=== PATIENT | male | born 1980 | race Caucasian/White ===

== ENCOUNTER → 2016-10-31 | Outpatient (CLI) | payer OTHER ==
[2016-10-31 09:38] LABS: HEMOGLOBIN 12.1 gm/dl (14.0-17.5); RED BLOOD COUNT 4.35 M/UL (4.20-5.50)
[2016-10-31 09:57] LABS: BUN/CREATININE RATIO 4 (0-10)
== END ==
LOC: OPSV 08:44
PROVIDERS: Internal Medicine Gastroenterology
DX: K50.90 Crohn's disease, unspecified, without complications (principal)
CPT/HCPCS: 36592; 80053; 85025; 86140; 96375; 96413; 96415; J1200; J1720; J1745; Q0163

== ENCOUNTER → 2020-08-29 | Outpatient (CLI) | payer OTHER ==
[~2020-08-29] VITALS: Ht 182.9 cm; Wt 97.5 kg
[2020-08-29 10:30] LABS: RED BLOOD COUNT 5.05 M/UL (4.20-5.50); WHITE BLOOD COUNT 5.9 K/UL (4.5-11.0)
[2020-08-29 11:15] LABS: BUN/CREATININE RATIO 12 (0-10)
== END ==
LOC: OPSV 09:55
PROVIDERS: Internal Medicine Gastroenterology
DX: K50.80 Crohn's disease of both small and large intestine without complications (principal); R10.13 Epigastric pain; G89.29 Other chronic pain; R19.8 Other specified symptoms and signs involving the digestive system and abdomen; E87.6 Hypokalemia; M25.50 Pain in unspecified joint; K56.699 Other intestinal obstruction unspecified as to partial versus complete obstruction; E55.9 Vitamin D deficiency, unspecified; R50.9 Fever, unspecified; N18.9 Chronic kidney disease, unspecified
CPT/HCPCS: 36415; 80053; 85025; 86140; 96365; J3380; J7050

== ENCOUNTER → 2020-09-26 | Outpatient (CLI) | payer OTHER ==
[2020-09-26 09:54] LABS: HEMOGLOBIN 15.2 gm/dl (14.0-17.5); RED BLOOD COUNT 5.16 M/UL (4.20-5.50); WHITE BLOOD COUNT 6.5 K/UL (4.5-11.0)
[2020-09-26 10:11] LABS: BUN/CREATININE RATIO 9 (0-10)
== END ==
LOC: OPSV 08:54
PROVIDERS: Internal Medicine Gastroenterology
DX: K50.80 Crohn's disease of both small and large intestine without complications (principal); K56.699 Other intestinal obstruction unspecified as to partial versus complete obstruction; N18.9 Chronic kidney disease, unspecified; D72.819 Decreased white blood cell count, unspecified; E87.6 Hypokalemia; R19.8 Other specified symptoms and signs involving the digestive system and abdomen; R10.13 Epigastric pain; G89.29 Other chronic pain; Z93.2 Ileostomy status
CPT/HCPCS: 36415; 80053; 85025; 86140; 96365; J3380; J7050

== ENCOUNTER → 2020-10-24 | Outpatient (CLI) | payer OTHER ==
[~2020-10-24] VITALS: Ht 182.9 cm; Wt 97.5 kg
[2020-10-24 10:19] LABS: RED BLOOD COUNT 4.99 M/UL (4.20-5.50); WHITE BLOOD COUNT 5.7 K/UL (4.5-11.0)
[2020-10-24 11:01] LABS: BUN/CREATININE RATIO 10 (0-10)
== END ==
LOC: OPSV 09:38
PROVIDERS: Internal Medicine Gastroenterology
DX: K50.80 Crohn's disease of both small and large intestine without complications (principal); K56.699 Other intestinal obstruction unspecified as to partial versus complete obstruction; N18.9 Chronic kidney disease, unspecified; R10.13 Epigastric pain; G89.29 Other chronic pain; D72.819 Decreased white blood cell count, unspecified; R50.9 Fever, unspecified; R19.8 Other specified symptoms and signs involving the digestive system and abdomen; E87.6 Hypokalemia; M25.50 Pain in unspecified joint; E55.9 Vitamin D deficiency, unspecified; Z93.2 Ileostomy status
CPT/HCPCS: 36415; 80053; 85025; 86140; 96365; J3380; J7050

== ENCOUNTER → 2020-11-21 | Outpatient (CLI) | payer OTHER ==
[2020-11-21 10:29] LABS: HEMOGLOBIN 15.9 gm/dl (14.0-17.5); RED BLOOD COUNT 5.29 M/UL (4.20-5.50); WHITE BLOOD COUNT 5.5 K/UL (4.5-11.0)
== END ==
LOC: OPSV 09:37
PROVIDERS: Internal Medicine Gastroenterology
DX: K50.80 Crohn's disease of both small and large intestine without complications (principal); K56.699 Other intestinal obstruction unspecified as to partial versus complete obstruction; R10.13 Epigastric pain; E55.9 Vitamin D deficiency, unspecified; N18.9 Chronic kidney disease, unspecified; E87.6 Hypokalemia; D72.819 Decreased white blood cell count, unspecified; R50.9 Fever, unspecified; Z93.2 Ileostomy status
CPT/HCPCS: 80053; 85025; 86140; 96365; J3380; J7050

== ENCOUNTER → 2020-12-19 | Outpatient (CLI) | payer OTHER ==
[2020-12-19 08:56] LABS: HEMOGLOBIN 16.2 gm/dl (14.0-17.5); RED BLOOD COUNT 5.3 M/UL (4.20-5.50); WHITE BLOOD COUNT 6.1 K/UL (4.5-11.0)
[2020-12-19 09:16] LABS: BUN/CREATININE RATIO 9 (0-10)
== END ==
LOC: OPSV 07:58
PROVIDERS: Internal Medicine Gastroenterology
DX: K50.80 Crohn's disease of both small and large intestine without complications (principal); R10.13 Epigastric pain; G89.29 Other chronic pain; N18.9 Chronic kidney disease, unspecified; E55.9 Vitamin D deficiency, unspecified; K56.699 Other intestinal obstruction unspecified as to partial versus complete obstruction; D72.819 Decreased white blood cell count, unspecified; M25.50 Pain in unspecified joint; R19.8 Other specified symptoms and signs involving the digestive system and abdomen; Z87.891 Personal history of nicotine dependence; Z93.2 Ileostomy status
CPT/HCPCS: 36415; 80053; 85025; 86140; 96365; J3380; J7050

== ENCOUNTER → 2021-01-16 | Outpatient (CLI) | payer OTHER ==
[~2021-01-16] VITALS: Ht 182.9 cm; Wt 97.5 kg
[2021-01-16 10:17] LABS: RED BLOOD COUNT 5.32 M/UL (4.20-5.50); WHITE BLOOD COUNT 5.8 K/UL (4.5-11.0)
[2021-01-16 10:40] LABS: BUN/CREATININE RATIO 14 (0-10)
== END ==
LOC: OPSV 09:35
PROVIDERS: Internal Medicine Gastroenterology
DX: K50.80 Crohn's disease of both small and large intestine without complications (principal); K50.90 Crohn's disease, unspecified, without complications; R10.9 Unspecified abdominal pain; R10.13 Epigastric pain; G89.29 Other chronic pain; N18.9 Chronic kidney disease, unspecified; D72.819 Decreased white blood cell count, unspecified; R50.9 Fever, unspecified; R19.8 Other specified symptoms and signs involving the digestive system and abdomen; Z93.2 Ileostomy status; E87.6 Hypokalemia; M25.50 Pain in unspecified joint; K56.699 Other intestinal obstruction unspecified as to partial versus complete obstruction; E55.9 Vitamin D deficiency, unspecified
CPT/HCPCS: 36415; 80053; 85025; 86140; 96365; J3380; J7050

== ENCOUNTER → 2021-02-13 | Outpatient (CLI) | payer OTHER ==
[~2021-02-13] VITALS: Ht 182.9 cm; Wt 97.5 kg
[2021-02-13 10:07] LABS: RED BLOOD COUNT 5.3 M/UL (4.20-5.50); WHITE BLOOD COUNT 6.5 K/UL (4.5-11.0)
[2021-02-13 10:27] LABS: BUN/CREATININE RATIO 9 (0-10)
== END ==
LOC: OPSV 09:27
PROVIDERS: Internal Medicine Gastroenterology
DX: K50.80 Crohn's disease of both small and large intestine without complications (principal); Z51.81 Encounter for therapeutic drug level monitoring; Z79.899 Other long term (current) drug therapy; N18.9 Chronic kidney disease, unspecified; K56.699 Other intestinal obstruction unspecified as to partial versus complete obstruction; Z93.2 Ileostomy status; Z87.891 Personal history of nicotine dependence
CPT/HCPCS: 80053; 85025; 86140; 96365; J3380; J7050

== ENCOUNTER → 2021-03-13 | Outpatient (CLI) | payer OTHER ==
[~2021-03-13] VITALS: Ht 182.9 cm; Wt 97.5 kg
[2021-03-13 10:25] LABS: HEMOGLOBIN 15.9 gm/dl (14.0-17.5); RED BLOOD COUNT 5.24 M/UL (4.20-5.50); WHITE BLOOD COUNT 7.2 K/UL (4.5-11.0)
[2021-03-13 12:37] LABS: BUN/CREATININE RATIO 7 (0-10)
== END ==
LOC: OPSV 09:52
PROVIDERS: Internal Medicine Gastroenterology
DX: K50.80 Crohn's disease of both small and large intestine without complications (principal); N18.9 Chronic kidney disease, unspecified; K56.699 Other intestinal obstruction unspecified as to partial versus complete obstruction; E55.9 Vitamin D deficiency, unspecified; Z87.891 Personal history of nicotine dependence; Z93.2 Ileostomy status
CPT/HCPCS: 36415; 80053; 85025; 86140; 96365; J3380; J7050

== ENCOUNTER → 2021-04-10 | Outpatient (CLI) | payer OTHER ==
[~2021-04-10] VITALS: Ht 182.9 cm; Wt 97.5 kg
[2021-04-10 10:14] LABS: HEMOGLOBIN 15.7 gm/dl (14.0-17.5); RED BLOOD COUNT 5.23 M/UL (4.20-5.50); WHITE BLOOD COUNT 7.2 K/UL (4.5-11.0)
== END ==
LOC: OPSV 09:29
PROVIDERS: Internal Medicine Gastroenterology
DX: K50.80 Crohn's disease of both small and large intestine without complications (principal); G89.29 Other chronic pain; R10.13 Epigastric pain; N18.9 Chronic kidney disease, unspecified; K50.90 Crohn's disease, unspecified, without complications; D72.819 Decreased white blood cell count, unspecified; Z93.2 Ileostomy status; E87.6 Hypokalemia; M25.50 Pain in unspecified joint; K56.699 Other intestinal obstruction unspecified as to partial versus complete obstruction; E55.9 Vitamin D deficiency, unspecified; Z87.891 Personal history of nicotine dependence
CPT/HCPCS: 36415; 80053; 85025; 86140; 96365; J3380; J7050

== ENCOUNTER → 2021-05-08 | Outpatient (CLI) | payer OTHER ==
[~2021-05-08] VITALS: Ht 182.9 cm; Wt 97.5 kg
[2021-05-08 10:06] LABS: HEMOGLOBIN 14.7 gm/dl (14.0-17.5); RED BLOOD COUNT 4.84 M/UL (4.20-5.50); WHITE BLOOD COUNT 6.4 K/UL (4.5-11.0)
== END ==
LOC: OPSV 09:34
PROVIDERS: Internal Medicine Gastroenterology
DX: K50.90 Crohn's disease, unspecified, without complications (principal)
CPT/HCPCS: 36415; 80053; 85025; 86140; 96365; J1200; J3380; J7050

== ENCOUNTER → 2021-06-05 | Outpatient (CLI) | payer OTHER ==
[~2021-06-05] VITALS: Ht 182.9 cm; Wt 97.5 kg
[2021-06-05 10:10] LABS: HEMOGLOBIN 14.9 gm/dl (14.0-17.5); RED BLOOD COUNT 4.87 M/UL (4.20-5.50); WHITE BLOOD COUNT 6.1 K/UL (4.5-11.0)
[2021-06-05 10:35] LABS: BUN/CREATININE RATIO 8 (0-10)
== END ==
LOC: OPSV 09:34
PROVIDERS: Internal Medicine Gastroenterology
DX: K50.90 Crohn's disease, unspecified, without complications (principal)
CPT/HCPCS: 36415; 80053; 85025; 86140; 96365; J3380; J7050

== ENCOUNTER → 2021-07-04 | Outpatient (CLI) | payer OTHER ==
[~2021-07-04] VITALS: Ht 182.9 cm; Wt 97.5 kg
[2021-07-04 10:40] LABS: HEMOGLOBIN 14.8 gm/dl (14.0-17.5); RED BLOOD COUNT 4.82 M/UL (4.20-5.50); WHITE BLOOD COUNT 6.9 K/UL (4.5-11.0)
[2021-07-04 11:16] LABS: BUN/CREATININE RATIO 7 (0-10)
== END ==
LOC: OPSV 09:48
PROVIDERS: Internal Medicine Gastroenterology
DX: K50.90 Crohn's disease, unspecified, without complications (principal)
CPT/HCPCS: 36415; 80053; 85025; 86140; 96365; J3380; J7050

== ENCOUNTER → 2021-07-31 | Outpatient (CLI) | payer OTHER ==
[~2021-07-31] VITALS: Ht 182.9 cm; Wt 97.5 kg
[2021-07-31 10:33] LABS: HEMOGLOBIN 15.5 gm/dl (14.0-17.5); RED BLOOD COUNT 5.05 M/UL (4.20-5.50); WHITE BLOOD COUNT 5.5 K/UL (4.5-11.0)
[2021-07-31 11:21] LABS: BUN/CREATININE RATIO 9 (0-10)
== END ==
LOC: OPSV 09:54
PROVIDERS: Internal Medicine Gastroenterology
DX: K50.90 Crohn's disease, unspecified, without complications (principal)
CPT/HCPCS: 80053; 85025; 86140; 96365; J3380; J7050

== ENCOUNTER → 2021-08-28 | Outpatient (CLI) | payer OTHER ==
[~2021-08-28] VITALS: Ht 182.9 cm; Wt 97.5 kg
[2021-08-28 10:13] LABS: HEMOGLOBIN 14.9 gm/dl (14.0-17.5); RED BLOOD COUNT 4.88 M/UL (4.20-5.50); WHITE BLOOD COUNT 4.7 K/UL (4.5-11.0)
[2021-08-28 10:39] LABS: BUN/CREATININE RATIO 7 (0-10)
== END ==
LOC: OPSV 09:39
PROVIDERS: Internal Medicine Gastroenterology
DX: K50.90 Crohn's disease, unspecified, without complications (principal)
CPT/HCPCS: 36415; 80053; 85025; 86140; 96365; J3380; J7050

== ENCOUNTER → 2021-09-25 | Outpatient (CLI) | payer OTHER ==
[~2021-09-25] VITALS: Ht 182.9 cm; Wt 97.5 kg
[2021-09-25 10:16] LABS: HEMOGLOBIN 14.6 gm/dl (14.0-17.5); RED BLOOD COUNT 4.85 M/UL (4.20-5.50); WHITE BLOOD COUNT 4.8 K/UL (4.5-11.0)
== END ==
LOC: OPSV 09:34
PROVIDERS: Internal Medicine Gastroenterology
DX: K50.90 Crohn's disease, unspecified, without complications (principal)
CPT/HCPCS: 80053; 85025; 86140; 96365; J3380; J7050

== ENCOUNTER → 2021-10-23 | Outpatient (CLI) | payer OTHER ==
[~2021-10-23] VITALS: Ht 182.9 cm; Wt 97.5 kg
[2021-10-23 10:23] LABS: HEMOGLOBIN 14.8 gm/dl (14.0-17.5); RED BLOOD COUNT 4.88 M/UL (4.20-5.50); WHITE BLOOD COUNT 5.5 K/UL (4.5-11.0)
[2021-10-23 10:35] LABS: BUN/CREATININE RATIO 9 (0-10)
== END ==
LOC: OPSV 09:34
PROVIDERS: Internal Medicine Gastroenterology
DX: K50.90 Crohn's disease, unspecified, without complications (principal)
CPT/HCPCS: 80053; 85025; 86140; 96365; J3380; J7050

== ENCOUNTER → 2021-11-20 | Outpatient (CLI) | payer OTHER ==
[~2021-11-20] VITALS: Ht 182.9 cm; Wt 97.5 kg
[2021-11-20 10:06] LABS: HEMOGLOBIN 14.7 gm/dl (14.0-17.5); RED BLOOD COUNT 4.63 M/UL (4.20-5.50); WHITE BLOOD COUNT 4.9 K/UL (4.5-11.0)
== END ==
LOC: OPSV 09:34
PROVIDERS: Internal Medicine Gastroenterology
DX: K50.90 Crohn's disease, unspecified, without complications (principal)
CPT/HCPCS: 80053; 85025; 86140; 96365; J3380; J7050

== ENCOUNTER → 2021-12-18 | Outpatient (CLI) | payer OTHER ==
[~2021-12-18] VITALS: Ht 182.9 cm; Wt 97.5 kg
[2021-12-18 09:56] LABS: HEMOGLOBIN 15.1 gm/dl (14.0-17.5); RED BLOOD COUNT 4.72 M/UL (4.20-5.50); WHITE BLOOD COUNT 4.7 K/UL (4.5-11.0)
[2021-12-18 10:31] LABS: BUN/CREATININE RATIO 9 (0-10)
== END ==
LOC: OPSV 09:29
PROVIDERS: Internal Medicine Gastroenterology
DX: K50.90 Crohn's disease, unspecified, without complications (principal)
CPT/HCPCS: 80053; 85025; 86140; 96365; J3380; J7050

== ENCOUNTER → 2022-01-15 | Outpatient (CLI) | payer OTHER ==
[~2022-01-15] VITALS: Ht 182.9 cm; Wt 97.5 kg
[2022-01-15 10:49] LABS: HEMOGLOBIN 15.2 gm/dl (14.0-17.5); RED BLOOD COUNT 4.75 M/UL (4.20-5.50); WHITE BLOOD COUNT 5.4 K/UL (4.5-11.0)
[2022-01-15 11:15] LABS: BUN/CREATININE RATIO 6 (0-10)
== END ==
LOC: OPSV 10:00
PROVIDERS: Internal Medicine Gastroenterology
DX: K50.90 Crohn's disease, unspecified, without complications (principal)
CPT/HCPCS: 80053; 85025; 86140; 96365; J3380; J7050

== ENCOUNTER → 2022-02-12 | Outpatient (CLI) | payer OTHER ==
[~2022-02-12] VITALS: Ht 182.9 cm; Wt 97.5 kg
[2022-02-12 10:27] LABS: HEMOGLOBIN 14.6 gm/dl (14.0-17.5); RED BLOOD COUNT 4.55 M/UL (4.20-5.50); WHITE BLOOD COUNT 5.2 K/UL (4.5-11.0)
[2022-02-12 10:54] LABS: BUN/CREATININE RATIO 8 (0-10)
== END ==
LOC: OPSV 10:00
PROVIDERS: Internal Medicine Gastroenterology
DX: K50.90 Crohn's disease, unspecified, without complications (principal)
CPT/HCPCS: 80053; 85025; 86140; 96365; J3380; J7050

== ENCOUNTER → 2022-03-20 | Outpatient (CLI) | payer OTHER ==
[~2022-03-20] VITALS: Ht 182.9 cm; Wt 97.5 kg
[2022-03-20 10:49] LABS: HEMOGLOBIN 15.1 gm/dl (14.0-17.5); RED BLOOD COUNT 4.96 M/UL (4.20-5.50); WHITE BLOOD COUNT 6.4 K/UL (4.5-11.0)
[2022-03-20 11:00] LABS: BUN/CREATININE RATIO 9 (0-10)
[2022-03-23 13:08] LABS: QUANTIFERON MITOGEN VALUE >10.00 IU/mL (.); QUANTIFERON NIL VALUE 0.05 IU/mL (.); QUANTIFERON TB1 AG VALUE 0.05 IU/mL (.); QUANTIFERON TB2 AG VALUE 0.04 IU/mL (.); QUANTIFERON-TB GOLD PLUS Negative (Negative)
== END ==
LOC: OPSV 03-12 10:00
PROVIDERS: Internal Medicine Gastroenterology
DX: K50.90 Crohn's disease, unspecified, without complications (principal)
CPT/HCPCS: 80053; 85025; 86140; 96365; J3380; J7050

== ENCOUNTER → 2022-04-16 | Outpatient (CLI) | payer OTHER ==
[~2022-04-16] VITALS: Ht 182.9 cm; Wt 97.5 kg
[2022-04-16 10:10] LABS: HEMOGLOBIN 12.4 gm/dl (14.0-17.5); RED BLOOD COUNT 3.76 M/UL (4.20-5.50)
[2022-04-16 10:33] LABS: BUN/CREATININE RATIO 10 (0-10)
== END ==
LOC: OPSV 09:25
PROVIDERS: Internal Medicine Gastroenterology
DX: K50.90 Crohn's disease, unspecified, without complications (principal)
CPT/HCPCS: 80053; 85025; 86140; 96365; J3380; J7050

== ENCOUNTER → 2022-05-14 | Outpatient (CLI) | payer OTHER ==
[~2022-05-14] VITALS: Ht 182.9 cm; Wt 97.5 kg
[2022-05-14 09:52] LABS: HEMOGLOBIN 11.8 gm/dl (14.0-17.5); RED BLOOD COUNT 3.4 M/UL (4.20-5.50); WHITE BLOOD COUNT 2.7 K/UL (4.5-11.0)
[2022-05-14 10:18] LABS: BUN/CREATININE RATIO 8 (0-10)
== END ==
LOC: OPSV 09:16
PROVIDERS: Internal Medicine Gastroenterology
DX: K50.90 Crohn's disease, unspecified, without complications (principal)
CPT/HCPCS: 80053; 85025; 86140; 96365; J3380; J7050